=== PATIENT | male | born 1935 | race Hispanic/Latino ===

== ENCOUNTER 2023-12-12 13:53 | Emergency (ER) | payer OTHER, MEDICARE ==
[~2023-12-12] VITALS: Ht 167.6 cm; Wt 74.8 kg
[2023-12-12 14:50] LABS: APPEARANCE,URINE CLEAR (CLEAR); BASOPHILS # (AUTO) 0.01 K/uL (0.00-0.20); BASOPHILS % (AUTO) 0.3 % (0.0-5.0); BILIRUBIN,URINE NEGATIVE (NEGATIVE); COLOR,URINE YELLOW (YELLOW); EOSINOPHILS # (AUTO) 0.01 K/uL (0.00-0.70); EOSINOPHILS % (AUTO) 0.3 % (0.0-8.0); GLUCOSE, URINE (UA) NEGATIVE (NEGATIVE); HEMATOCRIT 37.5 % (42-54); IMMATURE GRANULOCYTE ABSOLUTE 0.01 K/uL (0-1); KETONES,URINE NEGATIVE (NEGATIVE); LEUKOCYTE ESTERASE ,URINE NEGATIVE Leu/uL (NEGATIVE); LYMPHOCYTES # (AUTO) 0.2 K/uL (1.0-4.8); LYMPHOCYTES % (AUTO) 5.1 % (21.0-51.0); MEAN CORPUSCULAR HEMOGLOBIN 30.5 pg (27.0-33.0); MEAN CORPUSCULAR HGB CONC 33.6 g/dL (32.0-36.0); MEAN CORPUSCULAR VOLUME 90.8 fL (79-99); MONOCYTES # (AUTO) 0.1 K/uL (0.1-1.0); MONOCYTES % (AUTO) 1.7 % (3.0-13.0); NEUTROPHILS # (AUTO) 2.7 K/uL (1.8-7.7); NEUTROPHILS % (AUTO) 92.3 % (40.0-77.0); NITRATE,URINE NEGATIVE (NEGATIVE); OCCULT BLOOD,URINE NEGATIVE (NEGATIVE); PLATELET COUNT (AUTO) 100 K/uL (130-400); PROTEIN,URINE NEGATIVE (NEGATIVE); RED BLOOD CELL COUNT(AUTO) 4.13 MIL/uL (4.50-6.20); RED CELL DISTRIBUTION WIDTH 13.5 % (11.0-15.5); UROBILINOGEN,URINE 6 mg/dL (0.2-1.0); WHITE BLOOD COUNT (AUTO) 2.9 K/uL (4.8-10.8)
[2023-12-12 14:57] LABS: ADD UA MICROSCOPIC NO
[2023-12-12 15:01] LABS: INR 1.18 (0.85-1.15); PROTHROMBIN TIME 13.8 SEC (9.6-11.6)
[2023-12-12 15:02] LABS: PARTIAL THROMBOPLASTIN TIME 25.9 SEC (26.3-35.5)
[2023-12-12] MEDS: 0.9%NACL 1000ML 1,000 ML IV SCH (15:07)
[2023-12-12 15:37] LABS: ALBUMIN 3.1 g/dL (3.5-5.0); CREATININE 0.8 mg/dL (0.5-1.3); TOTAL PROTEIN, SERUM 6.2 g/dL (6.0-8.3)
[2023-12-12 15:54] LABS: BAND NEUTROPHILS % (MANUAL) 2 % (0-2); EOSINOPHILS % (MANUAL) 3 % (1-6); LYMPHOCYTES % (MANUAL) 8 % (22-44); MAN.DIFF COMMENT-IMPRESSION MANUAL DIFFERENTIAL; PLATELET MORPHOLOGY COMMENT ADEQUATE; SEGMENTED NEUTROPHILS % 87 % (40-70); TOTAL CELLS COUNTED 100; WBC MORPHOLOGY CONSISTENT W/DIFF
[2023-12-12] MEDS: POTASSIUM BICARB/CIT AC 25 MEQ TABLET.EFF PO STA (16:10)
[2023-12-12 17:45] VITALS: BP 122/56; PULSE 86; RESP 18; O2SAT 96
== END 2023-12-12 18:05 | disposition home or self-care (01) ==
LOC: EDH 13:53
DX: R74.01 Elevation of levels of liver transaminase levels (principal)
CPT/HCPCS: 99285; 74176; 96360; 71045; 96361; 82550; 84484; 80053; 85025; 85610; 85730; 87040 ×2; 87077 ×2; 87186 ×2; 83605 ×2; 81003; 36415; 93005; 84145; J7030